=== PATIENT | female | born 2000 | race African-American/Black ===

== ENCOUNTER 2022-05-14 19:32 | Inpatient (IN) | payer MEDICAID ==
[~2022-05-14] VITALS: Ht 157.5 cm; Wt 48.1 kg
[2022-05-14 20:42] LABS: BASOPHILS % (AUTO) 0.5 % (0.0-2.0); EOSINOPHILS % (AUTO) 1.5 % (1.0-6.0); HEMOGLOBIN 14.1 g/dL (12.0-16.0); LYMPHOCYTES # (AUTO) 1.6 K/uL (1.0-4.8); LYMPHOCYTES % (AUTO) 19.1 % (22.0-44.0); MEAN CORPUSCULAR HEMOGLOBIN 29.8 pg (26.0-34.0); MEAN CORPUSCULAR HGB CONC 33.6 G/dL (31.0-37.0); MEAN CORPUSCULAR VOLUME 89 fL (80-100); MONOCYTES # (AUTO) 0.6 K/uL (0.1-1.0); MONOCYTES % (AUTO) 6.6 % (2.0-9.0); NEUTROPHILS # (AUTO) 6.1 K/uL (1.8-7.7); NEUTROPHILS % (AUTO) 72.3 % (40.0-70.0); PLATELET COUNT (AUTO) 246 K/uL (150-450); RED BLOOD CELL COUNT(AUTO) 4.73 MIL/uL (4.00-5.20); RED CELL DISTRIBUTION WIDTH 13.2 % (11.5-14.5)
[2022-05-14 20:50] LABS: ANION GAP 15 mmol/L (8-16); CALCIUM, TOTAL 9.1 mg/dL (8.8-10.5); CARBON DIOXIDE 23 mmol/L (22-29); CHLORIDE 104 mmol/L (98-107); GLUCOSE,RANDOM 70 mg/dL (70-110); POTASSIUM 3.5 mmol/L (3.5-5.1); SODIUM SERUM 142 mmol/L (136-145); UREA NITROGEN, BLOOD 9 mg/dL (7-18)
[2022-05-14 20:51] LABS: GLOMERULAR FILTR. RATE CALC > 60 mL/min (>60)
[2022-05-14 21:02] LABS: ACETAMINOPHEN < 2 mcg/mL (10-30); ALANINE AMINOTRANSFERASE 12 U/L (12-78); ALBUMIN 4.3 g/dL (3.4-5.0); ALKALINE PHOSPHATASE 69 U/L (46-116); ASPARTATE AMINOTRANSFERASE 11 U/L (15-37); BILIRUBIN,TOTAL 0.3 mg/dL (0.1-1.0); HCG,QUANTITATIVE < 1 mIU/mL (0-6); TOTAL PROTEIN, SERUM 8.2 g/dL (6.4-8.2)
[2022-05-14 21:15] LABS: COVID AG,FIA SOURCE NASAL SWAB
[2022-05-14 21:18] LABS: AMPHET/METH SCREEN,URINE NEGATIVE (NEGATIVE); BARBITURATE SCREEN, URINE NEGATIVE (NEGATIVE); BENZODIAZEPINES SCREEN,URINE NEGATIVE (NEGATIVE); CANNABINOID SCREEN,URINE POSITIVE (NEGATIVE); COCAINE SCREEN,URINE NEGATIVE (NEGATIVE); METHADONE SCREEN, URINE NEGATIVE (NEGATIVE); OPIATE SCREEN,URINE NEGATIVE (NEGATIVE)
[2022-05-14 21:20] LABS: PHENCYCLIDINE SCREEN,URINE NEGATIVE (NEGATIVE)
[2022-05-14] MEDS ORDERED: ACETAMINOPHEN 325 MG TABLET PO PRN (22:30)
[2022-05-14] MEDS ORDERED: SODIUM CHLORIDE 0.9% 1,000 ML IV ONE (22:30)
[2022-05-14] MEDS: IBUPROFEN 400 MG TABLET PO PRN (22:43)
[2022-05-15] MEDS ORDERED: HALOPERIDOL 5 MG TABLET PO PRN (07:00)
[2022-05-15] MEDS ORDERED: LORazepam 2 MG TABLET PO PRN (07:00)
[2022-05-15] MEDS ORDERED: ZOLPIDEM TARTRATE 10 MG TABLET PO PRN (07:00)
[2022-05-15 10:00] VITALS: BP 110/71
[2022-05-15 18:01] VITALS: BP 122/70
[2022-05-15] MEDS: IBUPROFEN 400 MG TABLET PO PRN (18:01)
[2022-05-15 20:40] VITALS: BP 127/63
[2022-05-16 08:42] VITALS: BP 110/74
[2022-05-16] MEDS: IBUPROFEN 400 MG TABLET PO PRN (09:49)
== END 2022-05-16 12:45 | disposition home or self-care (01) | DRG 751 ==
LOC: EMS 19:33 → B2S 05-15 10:06
PROVIDERS: ADMIT Psychiatry & Neurology Child & Adolescent Psychiatry; ATTEND Psychiatry & Neurology Child & Adolescent Psychiatry
DX: F33.2 Major depressive disorder, recurrent severe without psychotic features (principal); E46 Unspecified protein-calorie malnutrition; F41.9 Anxiety disorder, unspecified; G47.00 Insomnia, unspecified; Z20.822 Contact with and (suspected) exposure to COVID-19; Z68.1 Body mass index [BMI] 19.9 or less, adult
CPT/HCPCS: 80053; 84702; 85025; 93005; 99285; G0480; G0481; J7030